=== PATIENT | male | born 1970 | race Caucasian/White ===

== ENCOUNTER 2016-06-05 12:58 | Emergency (ER) | payer OTHER ==
[~2016-06-05] VITALS: Ht 182.9 cm; Wt 90.0 kg
[~2016-06-05 12:58] MED LIST: FLUTI220I INH; MULT-65 PO; PROT40TA PO
[2016-06-05 13:02] VITALS: BP 155/101; PULSE 71; RESP 16; TEMP 98.2; O2SAT 99
--- NOTE | 2016-06-05 13:54 | PD ---
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 He has pain with movement. Duration 2 days. Severity is moderate. No direct trauma to it. Has worse pain when he moves his shoulder in almost any direction. PFSH Past Medical History Musculoskeletal: Yes (tore calf muscle 6 mo. ago) Immunizations Current: Yes Past Surgical History Pacemaker: No Other Surgery: Yes (PANENDOSCOPY 06/09, 08/09/13) Social History Alcohol Use: Yes (OCC) Tobacco Use: No Substance Use: No Allergies-Medications (Allergen,Severity, Reaction): Coded Allergies: No Known Allergies (Verified , 06/05/16) Reported Meds & Prescriptions Reported Meds & Active Scripts Active Review of Systems General / Constitutional: No: Fever HENT: No: Headaches Cardiovascular: No: Chest Pain or Discomfort Physical Exam Narrative Left arm is neurovascularly intact Good range of motion of left shoulder but has pain with abduction and abduction NECK: Symmetrical appearance, midline trachea. No mass or crepitus. Thyroid without enlargement, tenderness, or mass. SKIN: Inspection shows no rash or ulcers. Palpation shows no induration or nodules. Has tenderness to the region just anterior to the humeral head Data Data Last Documented VS Vital Signs Date Time Temp Pulse Resp B/P Pulse Ox O2 Delivery O2 Flow Rate FiO2 06/05/16 13:02 98.2 71 16 155/101 99 MDM Medical Decision Making Medical Screen Exam Complete: Yes Emergency Medical Condition: Yes Medical Record Reviewed: Yes Differential Diagnosis Rotator cuff tear, bicipital tendinitis, subacromial bursitis Narrative Course I have reviewed the patient's electronic medical record. No indication for x-rays Placed him in a sling and will have him rest and ice and take anti- inflammatories Recommend orthopedic follow-up Diagnosis Primary Impression: Soft tissue injury of left shoulder Med/Other Pt SpecificInfo: Other ( Skull and) Disposition: 01 DISCHARGE HOME Condition: Stable (:) Owen Younger MD Jun 05, 2016 13:54
== END 2016-06-05 14:02 | disposition home or self-care (01) ==
LOC: NEPB 12:58
DX: S49.82XA Other specified injuries of left shoulder and upper arm, initial encounter (principal); X50.9XXA Other and unspecified overexertion or strenuous movements or postures, initial encounter; Y93.F2 Activity, caregiving, lifting; Y92.538 Other ambulatory health services establishments as the place of occurrence of the external cause; Y99.0 Civilian activity done for income or pay
CPT/HCPCS: 99283

== ENCOUNTER → 2017-04-30 | Outpatient (CLI) | payer OTHER ==
[2017-04-30 09:18] LABS: HEMATOCRIT 44.5 % (39.0-51.0); MEAN CELL VOLUME 89.9 FL (80.0-100.0); MEAN CORPUSCULAR HEMOGLOBIN 30.4 PG (27.0-34.0); MEAN CORPUSCULAR HGB CONC 33.8 % (32.0-36.0); PLATELET COUNT 222 TH/MM3 (150-450); RED BLOOD COUNT 4.95 MIL/MM3 (4.50-5.90); RED CELL DISTRIBUTION WIDTH 11.8 % (11.6-17.2); REVIEW FLAG FINAL; WHITE BLOOD COUNT 8.1 TH/MM3 (4.0-11.0)
[2017-04-30 13:03] LABS: ANION GAP 6 MEQ/L (5-15); AST (GOT) 22 U/L (15-37); BICARBONATE 27.9 MEQ/L (21.0-32.0); CHLORIDE 104 MEQ/L (98-107); GLOMERULAR FILTRATION RATE 78 ML/MIN (>89); GLUCOSE,FASTING 95 MG/DL (74-99); POTASSIUM 3.8 MEQ/L (3.5-5.1); SODIUM (NA) 138 MEQ/L (136-145)
[2017-04-30 13:12] LABS: ALKALINE PHOSPHATASE 66 U/L (45-117); ALT (GPT) 55 U/L (12-78); BLOOD UREA NITROGEN 11 MG/DL (7-18); TOTAL BILIRUBIN ADULT 0.8 MG/DL (0.2-1.0)
== END ==
LOC: OLAB 08:34
PROVIDERS: ATTEND Family Medicine
DX: Z00.00 Encounter for general adult medical examination without abnormal findings (principal); Z12.5 Encounter for screening for malignant neoplasm of prostate
CPT/HCPCS: 80053; 84153; 84443; 85027